=== PATIENT | male | born 1980 | race Caucasian/White ===

== ENCOUNTER 2016-09-30 14:09 | Day surgery (SDC) | payer OTHER, MEDICAID ==
[~2016-09-30] VITALS: Ht 185.4 cm; Wt 128.8 kg
--- NOTE | ~2016-09-30 | OR ---
PATIENT'S NAME: THOR FLORENTINO [facility] AGE: 36 Y [address] ROOM: [place] [address] LOCATION: [facility] [place] ADMIT DATE: 09/30/2016 OR/Procedure Report DISCHARGE DATE: FAMILY PHYSICIAN: Aldo Augustine MD ATTENDING PHYSICIAN: Jesse Yu SURGEON: Jesse Yu MD WOOD CARVING MACHINE OPERATOR: DATE OF PROCEDURE: 09/30/2016 PREOPERATIVE DIAGNOSIS: Acute appendicitis. POSTOPERATIVE DIAGNOSIS: Acute appendicitis. PROCEDURE PERFORMED: Laparoscopic appendectomy. ANESTHESIA: General endotracheal. ESTIMATED BLOOD LOSS: 5 mL. SPECIMEN: Appendix. REASON FOR PROCEDURE: The patient is a 36-year-old male, who presented with a less than 1-day history of progressive right lower quadrant pain. He was found to have an elevated white count. A CT scan showed evidence of acute appendicitis. The patient desired to proceed with appendectomy. FINDINGS: The patient had a swollen inflamed appendix with some early ischemia. No perforation. PROCEDURE IN DETAIL: The patient was taken to the operating suite and placed in the supine position. After general endotracheal anesthesia was obtained, the abdomen was prepped with ChloraPrep and sterilely draped. Marcaine was infiltrated into the incision sites. A small infraumbilical incision was made. The umbilicus was elevated and a Veress needle was used to obtain a pneumoperitoneum. A 5-mm trocar was then passed across the abdominal wall. Next, a 5 mm left lower quadrant and 12 mm right lower quadrant trocar were both placed under direct visualization. The appendix was identified and found to be quite swollen and inflamed with some early ischemia. No free fluid or perforation. The mesoappendix was divided with cautery. We then used the Endo-ALYSHA to fire across the base of the appendix. The appendix was placed in an endo retrieval bag and brought out through the right lower quadrant opening. Vicryl was used to close the fascia in the right lower quadrant. The skin incisions were all closed with subcuticular Monocryl. Benzoin, Steri- Strips, and gauze dressings were applied. PATIENT'S NAME: THOR FLORENTINO [facility] AGE: 36 Y [address] ROOM: [place] [address] LOCATION: [facility] [place] ADMIT DATE: 09/30/2016 OR/Procedure Report DISCHARGE DATE: FAMILY PHYSICIAN: Aldo Augustine MD ATTENDING PHYSICIAN: Jesse Yu POSTPROCEDURE PLAN: The patient will be sent to recovery and then to the floor. When stable, we will gradually advance his diet as tolerated. He will receive pain medicines as necessary. MD RON MORRELL/modl /[id number] d: 09/30/16 2334 t: 10/07/16 1719, OPERATIVE SUMMARY
--- NOTE | ~2016-09-30 | ER ---
PATIENT'S NAME: THOR FLORENTINO [facility] AGE: 36 Y [address] ROOM: [place] [address] LOCATION: [facility] [place] ADMIT DATE: 09/30/2016 ER/Outpatient Report DISCHARGE DATE: FAMILY PHYSICIAN: Aldo Augustine MD ATTENDING PHYSICIAN: Jesse Yu Time of Arrival: 1409 hours. Time of Evaluation: 1422 hours. CHIEF COMPLAINT: Abdominal pain. HISTORY OF PRESENT ILLNESS: The patient is a 36-year-old male who presents to the emergency department today with a chief complaint of abdominal pain. He reports this started 11 hours prior to arrival. Does report some nausea and vomiting x2 to 3. Did drink some water today. Denies any diarrhea or constipation. No fevers or chills. No urinary frequency, urgency, or painful urination. Last bowel movement was on 09/29/2016. It is a sharp pain, worse with movement in the right lower quadrant, currently 4 to 5/10 in severity. PAST MEDICAL HISTORY: None. PAST SURGICAL HISTORY: Vasectomy. SOCIAL HISTORY: The patient smokes a pack per day but quit in March of this year. Denies any alcohol or illicit drug use. ALLERGIES: NO KNOWN DRUG ALLERGIES. MEDICATIONS: None. PRIMARY CARE DOCTOR: Aldo Augustine MD. REVIEW OF SYSTEMS: All systems are reviewed by myself and are negative with the exception of those discussed in HPI and past medical history. PHYSICAL EXAMINATION: PATIENT'S NAME: THOR FLORENTINO [facility] AGE: 36 Y [address] ROOM: [place] [address] LOCATION: [facility] [place] ADMIT DATE: 09/30/2016 ER/Outpatient Report DISCHARGE DATE: FAMILY PHYSICIAN: Aldo Augustine MD ATTENDING PHYSICIAN: Jesse Yu VITAL SIGNS: Weight 128.8 kilograms, blood pressure 145/92, pulse 120, respiratory rate 16, temperature 98.5, oxygen saturation 97% on room air. GENERAL: The patient is a 36-year-old male, appears stated age, in mild acute distress. HEENT: Normocephalic, atraumatic. Pupils are equal, round, and reactive to light. Mucous membranes are moist. NECK: Supple. There is no nuchal rigidity. CARDIOVASCULAR: Tachycardic. No murmurs, rubs, or gallops. LUNGS: Clear to auscultation bilaterally. No wheezes, rales, or rhonchi. ABDOMEN: Soft with moderate right lower quadrant tenderness to palpation. There is voluntary guarding. There is no rebound. There is no rigidity. Positive bowel sounds. MUSCULOSKELETAL: The patient moves all 4 extremities. SKIN: Warm and dry. There are no rashes or lesions noted. LABORATORY DATA AND X-RAYS: Labs and x-rays were obtained. CBC: White blood cell count 18.3, otherwise, normal. Urinalysis is negative. CMP is unremarkable. LFTs are normal. CT scan of the abdomen and pelvis was obtained. Discussed the results with the radiologist. Does have an 8 mm calcification at the base of the appendix and the appendix does appear distended consistent with early appendicitis. IMPRESSION: 1. Acute appendicitis. 2. Initial visit. EMERGENCY DEPARTMENT COURSE: The patient was brought back to the examination room. Seen and evaluated by myself. IV was established. Laboratory analysis and imaging are obtained as described above. The patient was given 4 mg of Zofran IV. The patient refuses any pain medicine at this time. Results are obtained from the CT imaging. I have discussed the case with Dr. Yu. He has seen and evaluated the patient. Will proceed to surgery for management of the appendicitis. DISPOSITION: The patient is admitted under the care of Dr. Yu to surgery in stable condition. DO ROBE LEPE/modl PATIENT'S NAME: THOR FLORENTINO [facility] AGE: 36 Y [address] ROOM: [place] [address] LOCATION: [facility] [place] ADMIT DATE: 09/30/2016 ER/Outpatient Report DISCHARGE DATE: FAMILY PHYSICIAN: Aldo Augustine MD ATTENDING PHYSICIAN: Jesse Yu /[id number] d: 09/30/169 t: 10/01/16 0559, OUTPATIENT REPORT
--- NOTE | ~2016-09-30 | HP ---
PATIENT'S NAME: THOR FLORENTINO [facility] AGE: 36 Y [address] ROOM: [place] [id number] [place] [facility] [place] DATE: 09/30/2016 History & Physical DISCHARGE DATE: FAMILY PHYSICIAN: Aldo Augustine MD ATTENDING PHYSICIAN: Jesse Yu DATE OF SERVICE: 09/30/2016 CHIEF COMPLAINT: Right lower quadrant pain. HISTORY OF PRESENT ILLNESS: The patient is a 36-year-old male who developed some abdominal pain last evening and initially it was just a vague diffuse pain and he thought maybe he needed to have a bowel movement. He tried taking a laxative and did have results but did not have any improvement. Throughout the night and this morning, the pain became more localized to the right lower quadrant, more severe, it is constant in nature, it is aggravated by movement. He has never had pain like this before. He has had nausea and vomiting. He denies fevers or chills. He has no history of Crohn disease or inflammatory bowel disease. He denies any blood in his stool. He denies any dysuria or urinary frequency. He came into the emergency room and was found to have an elevated white count of just over 18,000. A CT scan was obtained, which shows changes consistent with early appendicitis. PAST MEDICAL HISTORY: The patient denies any chronic health problems. MEDICATIONS: None. ALLERGIES: NONE. PREVIOUS SURGERIES: Include vasectomy. SOCIAL HISTORY: The patient is . 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 He is a former smoker. FAMILY HISTORY: Noncontributory. REVIEW OF SYSTEMS: PATIENT'S NAME: THOR FLORENTINO [facility] AGE: 36 Y [address] ROOM: [address] [address] [place] [facility] [place]: 09/30/2016 History & Physical DISCHARGE DATE: FAMILY PHYSICIAN: Aldo Augustine MD ATTENDING PHYSICIAN: Jesse Yu Did not really reveal any abnormalities other than the current pain, nausea, or vomiting. PHYSICAL EXAMINATION: GENERAL: The patient is a healthy, well-nourished gentleman. He is alert and oriented. He is in no obvious distress or discomfort. VITAL SIGNS: Pulse 120, blood pressure 145/92, respiratory rate 16, temperature 98.7, sats are 92% on room air. HEENT: Normocephalic, atraumatic. Pupils are equal. There is no scleral icterus. External ears, nose, and eyelids unremarkable. Oropharynx is clear without lesions or exudate. NECK: Trachea is midline. There is no mass or adenopathy. Breathing is nonlabored. LUNGS: Clear to auscultation without rales, rhonchi, or wheezing. HEART: Regular rate and rhythm. ABDOMEN: Soft. It is not distended. He does have bowel sounds present. He has some mild left lower quadrant tenderness and more edchofst-ad-stdmeo right lower quadrant tenderness. No real rebound or guarding. No obvious hernias. EXTREMITIES: No peripheral edema. No cyanosis or clubbing. ASSESSMENT: This is a 36-year-old male with probable early acute appendicitis. PLAN: I discussed the diagnosis with him. I recommended that we proceed with laparoscopic appendectomy. Risks and benefits were all discussed. The patient is agreeable. MD RON MORRELL/abdoulaye /[id number] D: [id number] T: [id number] HISTORY & PHYSICAL
[2016-09-30 14:44] LABS: BASOPHIL # 0.1 K/uL (0.0-0.2); BASOPHIL % 0.4 %; EOSINOPHIL # 0.1 K/uL (0.0-0.5); EOSINOPHIL % 0.3 %; HEMATOCRIT 43.6 % (37.0-53.0); HEMOGLOBIN 15.8 g/dL (12.0-17.0); IMMATURE GRANULOCYTE % 0.2 %; LYMPHOCYTE # 1.8 K/uL (0.8-4.0); LYMPHOCYTE % 9.6 %; MCH 31.3 pg (27.0-34.0); MCHC 36.2 gm/dL (32.0-36.5); MCV 86.3 fl (83.0-98.0); MONOCYTE # 1.6 K/uL (0.0-1.0); MONOCYTE % 8.9 %; NEUTROPHIL # (ANC) 14.7 K/uL (1.4-9.0); NEUTROPHIL % 80.6 %; NRBC % 0 /100WBC (0-0.00); PLATELET COUNT 239 K/uL (150-450); RBC 5.05 M/uL (4.00-6.00); RDW-CV 12.3 % (11.9-14.6)
[2016-09-30 14:45] LABS: WBC 18.3 K/uL (4.0-11.0)
[2016-09-30 15:02] LABS: ALBUMIN 3.8 gm/dL (3.5-5.0); ANION GAP 11.7 (10.0-19.0); CALCIUM 8.8 mg/dL (8.5-10.5); CREATININE 1.2 mg/dL (0.6-1.3); POTASSIUM 3.7 mMol/L (3.7-5.1); TOTAL BILIRUBIN 0.6 mg/dL (0.0-1.5); TOTAL PROTEIN 7.1 g/dL (6.0-8.4)
[2016-09-30 15:37] LABS: BILIRUBIN URINE NEGATIVE (NEGATIVE); BLOOD URINE NEGATIVE /UL (NEGATIVE); COLOR URINE YELLOW (YELLOW); GLUCOSE URINE NEGATIVE (NEGATIVE); KETONE URINE NEGATIVE (NEGATIVE); LEUKOCYTES URINE NEGATIVE /UL (NEGATIVE); NITRITE URINE NEGATIVE (NEGATIVE); PROTEIN URINE NEGATIVE (NEGATIVE); TURBIDITY URINE CLEAR (CLEAR); UROBILINOGEN URINE NORMAL (NORMAL)
[2016-09-30] MEDS ORDERED: ANDROGEL1.25 GM TOP (17:29)
--- NOTE | 2016-10-01 04:14 | NUR ---
Significant Event:Patient is a 36 year old male with a 24 hour history of worsening RLQ abdominal pain, nausea and vomting. He was evaluated in the ER and a CT scan revealed probable appendicitis. He was taken to OR for laproscopic removal of his appendix. Since arrival to the floor patient has been afebrile, all other VSS. He was given Hamilton (2 tabs) in PACU at 1907 and has hand Motrin (600mg) x1 at 2314 and Hamilton (1 tab) last at 0337. Eating and drinking without nausea or vomiting. PIV saline locked. Bowel sounds hypoacive x4 quadrants. Abdominal dressings x3 remain C/D/I. Up in room with minimal assistance. Ambulated in halls x1 this shift. Cooperative with cares. Follow up:
--- NOTE | 2016-10-01 04:39 | NUR ---
Significant Event: Sleeping for long periods tonight. Afebrile, all other VSS. Wears CPAP at [facility]. [place] (1 tab) given x3 last at 0317 for pain. Up in room with minimal assistance. Drinking well, voiding well. Stool x1 this shift. PIV patent and saline locked. Incision to L)face/neck approximated, sututed. TANJA drain in place with 12ml bloody drainage out. Plan for home later today. Follow up:
[2016-10-01] MEDS ORDERED: NORCO 5-325 TA1 EACH PO (10:59)
--- NOTE | 2016-10-01 11:40 | NUR ---
DISCHARGE: D: ORDERS RECEIVED FOR THE PATIENT TO BE DISCHARGED TO HOME TODAY. I: DISMISSAL INSTRUCTIONS WERE PREPARED AND REVIEWED WITH THE PATIENT AND HIS VIRTUALLY. THE FOLLOWING INFORMATION WAS DISCUSSED INCLUDING [employer] TEACHING SHEETS PROVIDED: DISCHARGE INSTRUCTIONS FOR A LAP APPY, NORCO AND PREVENTING DVT. REVIEWED SIDE EFFECTS AND THEY WOULD HAVE TO TAKE THE PRESCRIPTION THE THEIR PHARMACY OF CHOICE TO GET IT FILLED. R: THE PATIENT AND HIS BOTH VERBALIZED UNDERSTANDING OF THE DISMISSAL EDUCATION AT THE TIME OF TEACHING WITH NO FURTHER QUESTIONS. P: THE ABOVE INFORMATION WAS SHARED WITH THE PRIMARY NURSE AND THE CHARGE NURSE THAT THE DISMISSAL EDUCATION WAS COMPLETED AND THE PATIENT IS READY FOR DISCHARGE. THE PATIENT AMBULATED TO THE FRONT DOOR WITH NURSE.
== END 2016-10-01 11:30 | disposition disaster alternative care site (69) ==
LOC: GMED 14:09 → GSDC 16:31 → GMSU 16:31 → GSDC 10-01 11:30
PROVIDERS: Emergency Medicine
PROC: 0DTJ4ZZ Resection of Appendix, Percutaneous Endoscopic Approach (ICD-10-PCS; principal; 2016-09-30)
DX: K35.80 Unspecified acute appendicitis (principal); Z98.890 Other specified postprocedural states; Z87.891 Personal history of nicotine dependence
CPT/HCPCS: J1335; J2405; J7030; Q9967

== ENCOUNTER → 2016-10-28 | Outpatient (CLI) | payer OTHER, MEDICAID ==
[~2016-10-28] MED LIST: ANDROGEL1.25 GM TOP; NORCO 5-325 TA1 EACH PO
--- NOTE | ~2016-10-28 | PUL ---
PATIENT'S NAME: THOR FLORENTINO [facility] AGE: 36 Y [address] ROOM: [place] [address] LOCATION: [facility] ADMIT DATE: 10/28/2016 Pulmonary DISCHARGE DATE: FAMILY PHYSICIAN: Aldo Augustine MD ATTENDING PHYSICIAN: Aldo Augustine NAME OF PROCEDURE: Sleep Study PROCEDURE DATE: 10/28/16 TECH: GOLDEN Cordon [place] [facility] [id number] TECHNICAL PARAMETERS: The patient was studied using International 10/20 measuring system. While the patient was studied, there was continuous monitoring of EEG (8 leads), EOG (2 leads), EKG (3 leads), submental EMG (3 leads), tibial (4 leads), respiratory inductive plethysmography (RIP) for thoracic and abdominal effort, oral and nasal airflow with a thermocouple and pressure transducer, and oximetry. The bakery technician also performed visual and auditory observations noting things like body position, patient's status, breath sounds, artifact, snoring level and patient comments. Continuous sound was monitored using a 2-way speaker system and video monitoring was performed using an infrared camera. Review of the entire study was performed epoch by epoch utilizing a single epoch and multiple epoch capability sleep system. MEDICAL HISTORY: Patient is a 36-year-old overweight man with daytime sleepiness and snoring. SLEEP STAGE SUMMARY: The patient was studied for 454 minutes of which he slept 400 minutes. He fell asleep in 14 minutes and slept for 88% of the night. Sleep architecture revealed a decline in slow wave and REM sleep. RESPIRATORY SUMMARY: Oxygen saturations ranged from 86-95% and were below 88% for 24 minutes. There were 3 apneas and 60 hypopneas for an apnea/hypopnea index mildly elevated at 9.5 events per hour. The majority events occurred too late in the study to allow for initiation of CPAP. EKG SUMMARY: Average heart rate 84 beats per minute. No dysrhythmias were noted. LIMB MOVEMENT SUMMARY: Occasional periodic limb movements were noted. These do not appear to be clinically relevant. SUMMARY: Mild obstructive sleep apnea. PATIENT'S NAME: THOR FLORENTINO [facility] AGE: 36 Y [address] ROOM: [place] [address] LOCATION: [facility] ADMIT DATE: 10/28/2016 Pulmonary DISCHARGE DATE: FAMILY PHYSICIAN: Aldo Augustine MD ATTENDING PHYSICIAN: Aldo Augustine PLAN: Patient will receive results from the ordering provider. Would consider weight loss and avoidance of alcohol or sedating medications at night. An oral appliance or surgical intervention could be considered as well as CPAP. The patient will receive results from the ordering provider. SATNAM HOLT MD /[id number] dtt: 10/30/16 1515 , dtd:
== END | disposition disaster alternative care site (69) ==
LOC: GSLP 20:24
DX: R06.83 Snoring (principal); G47.10 Hypersomnia, unspecified; G47.33 Obstructive sleep apnea (adult) (pediatric); R40.0 Somnolence; R53.83 Other fatigue